=== PATIENT | female | born 1990 | race Caucasian/White ===

== ENCOUNTER → 2018-12-19 | Outpatient (CLI) | payer OTHER ==
--- NOTE | 2018-12-19 13:29 | RAD ---
LUMBAR SPINE 2-3V History: Low back pain for 2 years getting worse the last 3 months Comparison: None. Findings: 3 views of the lumbar spine are submitted. Lumbar vertebral body stature and AP alignment are maintained. Intervertebral disc spaces are adequate. No acute osseous abnormality is identified by radiographs. Impression: 1. No significant abnormality is identified by radiographs. Electronically signed by: Brady Pompa MD (12/19/2018 1:25 PM) [id number]
== END | disposition home or self-care (01) ==
LOC: RAD 10:55
PROVIDERS: ATTEND Family Medicine
DX: M54.5 Low back pain (principal)
CPT/HCPCS: 72100

== ENCOUNTER → 2019-02-16 | Outpatient (CLI) | payer SELFPAY ==
--- NOTE | 2019-02-16 16:29 | RAD ---
Views right hip 02/16/2019 3:59 PM Indication: Constant right hip pain x 1 month, no truama Comparison: Abdominal radiograph July 25, 2009 Findings: There is no acute fracture or dislocation. Articular surfaces are uninterrupted and smooth. Sclerotic focus in the right greater trochanter is stable likely a small bone island. Soft tissues are unremarkable. Impression: No evidence of acute osseous abnormality. Electronically signed by: Brady Capps MD (02/16/2019 4:26 PM) [id number]
== END | disposition home or self-care (01) ==
LOC: RAD 15:28
PROVIDERS: ATTEND Family Medicine
DX: M25.551 Pain in right hip (principal)
CPT/HCPCS: 73502

== ENCOUNTER 2019-08-10 13:58 | Emergency (ER) | payer OTHER ==
[~2019-08-10] VITALS: Ht 165.1 cm; Wt 107.0 kg
[2019-08-10 14:05] VITALS: BP 115/72
--- NOTE | 2019-08-10 14:22 | PHYS DOC ---
Past History Past Medical History: No Pertinent History Past Surgical History: Cholecystectomy Smoking: Cigarettes Alcohol Use: None Drug Use: None Adult General Chief Complaint Chief Complaint: ANKLE PROBLEM HPI HPI Patient is a 29-year-old female presents complaining of left ankle pain. She sustained an inversion mechanism ankle injury approximately 9:30 this morning while walking to work. She has been able to walk on it. She has taken no pain medicine. She reports that it feels numb in her toes. No previous history of ankle injury. Pain is moderate to severe. No radiation of the pain. Pain is sharp in nature. Increased pain with movement.[] Review of Systems Review of Systems Constitutional: Denies fever or chills [] Eyes: Denies change in visual acuity, redness, or eye pain [] HENT: Denies nasal congestion or sore throat [] Respiratory: Denies cough or shortness of breath [] Cardiovascular: No chest pain or palpitations[] GI: Denies abdominal pain, nausea, vomiting, bloody stools or diarrhea [] : Denies dysuria or hematuria [] Musculoskeletal: Denies back pain, see history of present illness[] Integument: Denies rash or skin lesions [] Neurologic: Denies headache, focal weakness or sensory changes [] Endocrine: Denies polyuria or polydipsia [] All other systems were reviewed and found to be within normal limits, except as documented in this note. Physical Exam Physical Exam Constitutional: Well developed, well nourished, no acute distress, non-toxic appearance. [] HENT: Normocephalic, atraumatic, bilateral external ears normal, oropharynx moist, no oral exudates, nose normal. [] Eyes: PERRLA, EOMI, conjunctiva normal, no discharge. [] Neck: Normal range of motion, no tenderness, supple, no stridor. [] Cardiovascular:Heart rate regular rhythm, no murmur [] Lungs & Thorax: Bilateral breath sounds clear to auscultation [] Abdomen: Not examined. [] Skin: Warm, dry, no erythema, no rash. [] Back: No tenderness, no CVA tenderness. [] Extremities: Left ankle has diffuse tenderness with tenderness over medial and lateral malleoli and the base of the fifth metatarsal. Full active range of motion. No rashes. No bruising. No significant swelling appreciated. Capillary refill is less than 2 seconds. No ankle laxity. A joint above and below were evaluated and were normal. The other 3 extremities show: No tenderness, no cyanosis, no clubbing, ROM intact, no edema. [] Neurologic: Alert and oriented X 3, normal motor function, normal sensory function, no focal deficits noted. [] Psychologic: Affect normal, judgement normal, mood normal. [] Current Patient Data Vital Signs Vital Signs Date Time Temp Pulse Resp B/P (MAP) Pulse Ox O2 Delivery O2 Flow Rate FiO2 08/10/19 14:05 98.2 88 18 99 Room Air EKG EKG [] Radiology/Procedures Radiology/Procedures Examination: ANKLE LEFT 3V, FOOT LEFT 3V History: Injury, pain Comparison/Correlation: None Findings: Three-view exam of the left ankle and 3 views of the left foot were obtained. Ankle joint mortise is unremarkable. Small calcaneal spur is present. No acute fracture or bony destruction. Bony density medial to the navicular bone probably represents accessory ossicle. Joint spaces are adequate. Impression: No acute process. No significant degenerative change.[] Course & Med Decision Making Course & Med Decision Making Pertinent Labs and Imaging studies reviewed. (See chart for details) ED course: Patient arrived, was placed in bed, and tolerated exam well. She was transported to and from radiology. She was given NSAIDs for pain. After the return of the imaging findings, these were discussed with the patient. A preformed ankle splint was placed on the patient. She was distally neurova scularly intact after the splint application. She was discharged in improved condition with all questions answered. Medical decision making: There is no evidence of a fracture or dislocation. No evidence of neurologic or vascular compromise. No evidence of significant tendinous or ligamentous injury.[] Dragon Disclaimer Dragon Disclaimer This electronic medical record was generated, in whole or in part, using a voice recognition dictation system. Departure Departure: Impression: Primary Impression: Left ankle sprain Disposition: HOME, SELF-CARE Condition: IMPROVED Referrals: KASEY MARTEL MD (PCP) Follow-up in 2 days Patient Instructions: Ankle Sprain, Acute, with Phase I Rehab-SportsMed Additional Instructions: Follow-up with your regular doctor in 2 days. Weight-bear as tolerated. Take the medication as prescribed. Return to the ER if worsening pain, weakness, or any other concerns. Scripts Meloxicam (MELOXICAM) 7.5 Mg Tablet 7.5 MG PO DAILY for PAIN, #20 TAB Prov: SHIRLEY WILLIAMSON DO 08/10/19 Problem Qualifiers Primary Impression: Left ankle sprain Encounter type: initial encounter Involved ligament of ankle: unspecified ligament Qualified Codes: S93.402A - Sprain of unspecified ligament of left ankle, initial encounter SHIRLEY WILLIAMSON DO Aug 10, 2019 14:22
[2019-08-10] MEDS ORDERED: IBUPROFEN 600 MG TABLET. PO ONE (14:30)
--- NOTE | 2019-08-10 14:31 | RAD ---
Examination: ANKLE LEFT 3V, FOOT LEFT 3V History: Injury, pain Comparison/Correlation: None Findings: Three-view exam of the left ankle and 3 views of the left foot were obtained. Ankle joint mortise is unremarkable. Small calcaneal spur is present. No acute fracture or bony destruction. Bony density medial to the navicular bone probably represents accessory ossicle. Joint spaces are adequate. Impression: No acute process. No significant degenerative change. Electronically signed by: Paul Chapa MD (08/10/2019 2:28 PM) [facility]
[2019-08-10] MEDS ORDERED: MELO7.5T29 PO (14:41)
== END 2019-08-10 14:46 | disposition home or self-care (01) ==
LOC: ER 13:58
DX: S93.402A Sprain of unspecified ligament of left ankle, initial encounter (principal); F17.210 Nicotine dependence, cigarettes, uncomplicated; X50.9XXA Other and unspecified overexertion or strenuous movements or postures, initial encounter; Y93.01 Activity, walking, marching and hiking; Y92.89 Other specified places as the place of occurrence of the external cause; Y99.8 Other external cause status
CPT/HCPCS: 73610; 73630; 99284

== ENCOUNTER 2021-07-08 02:45 | Emergency (ER) | payer OTHER ==
[~2021-07-08] VITALS: Ht 167.6 cm; Wt 117.1 kg
[~2021-07-08 02:45] MED LIST: MELO7.5T29 PO
[2021-07-08 02:50] VITALS: BP 117/66
[2021-07-08] MEDS ORDERED: CLIN300C9 PO (03:00)
--- NOTE | 2021-07-08 03:00 | PHYS DOC ---
Past History Past Medical History: No Pertinent History Past Surgical History: Cholecystectomy Smoking: Cigarettes Alcohol Use: None Drug Use: None Adult General HPI HPI Patient is an otherwise healthy 31-year-old female who presents with some tenderness and swelling around the distal tip of her left third digit that started couple days ago. States that it does hurt, 6 out of 10, dull and achy in nature. States she thought it might have some fluid in it and stabbed it with a needle but nothing came out except a little blood. Denies any recent traumas, travels, fevers, abdominal pain, nausea, vomiting. States he did not take anything for the pain. Review of Systems Review of Systems Review of systems otherwise unremarkable except noted in HPI Allergies Allergies Allergies Coded Allergies Type Severity Reaction Last Updated Verified No Known Drug Allergies 08/10/19 No Physical Exam Physical Exam Constitutional: Well developed, well nourished, no acute distress, non-toxic appearance. [] Skin: Warm, dry, no erythema, no rash. [] Back: No tenderness, no CVA tenderness. [] Extremities: Mild redness around the distal tip of the third left digit just proximal to the nail with some erythema and swelling but no fluctuance. Neurologic: Alert and oriented X 3, no focal deficits noted. [] Psychologic: Affect normal, judgement normal, mood normal. [] EKG EKG [] Radiology/Procedures Radiology/Procedures [] Heart Score C/O Chest Pain: No Risk Factors: Risk Factors: DM, Current or recent (<one month) smoker, HTN, HLP, family history of CAD, obesity. Risk Scores: Risk Factors: DM, Current or recent (<one month) smoker, HTN, HLP, family history of CAD, obesity. Course & Med Decision Making Course & Med Decision Making Patient is a 31-year-old female who presents with tenderness and redness around finger Vital signs not concerning. Physical exam noted above. Started on clindamycin for cellulitis. Given oral pain medicine. Discussed symptom management at home. Advised not to cut or stab anymore. Advised to follow-up with primary care physician on Saturday to set up a follow- up. Gave return precautions to the ED. Family grateful, verbalized understanding and agreed with plan of discharge. [] Dragon Disclaimer Dragon Disclaimer This electronic medical record was generated, in whole or in part, using a voice recognition dictation system. Departure Departure: Impression: Primary Impression: Cellulitis Disposition: HOME / SELF CARE / HOMELESS Condition: GOOD Referrals: KASEY MARTEL MD (PCP) Patient Instructions: Cellulitis, Paronychia Additional Instructions: Thank you for coming into the emergency department tonight and allowing us to take care of you. Please read all the attached information to go over things we discussed. Please take all your antibiotics as prescribed. Please begin a Tylenol, ibuprofen regimen as well as hot compress and/or ice as needed. Please follow-up Saturday with your primary care physician to set up a follow-up visit for a wound reevaluation. Please come back to the ED with new or concerning symptoms as discussed. Scripts Clindamycin Hcl (CLINDAMYCIN HCL) 300 Mg Capsule 1 CAP PO TID for cellulitis for 10 Days, #30 CAP Prov: TIGIST VILLA MD 07/08/21 TIGIST VILLA MD Jul 08, 2021 03:00
[2021-07-08] MEDS ORDERED: oxyCODONE/APAP 5/325 1 TAB TABLET PO ONE (03:30)
[2021-07-08] MEDS ORDERED: CLINDAMYCIN HCL 150 MG CAPSULE PO ONE (03:30)
== END 2021-07-08 03:18 | disposition home or self-care (01) ==
LOC: ER 02:45
DX: L03.012 Cellulitis of left finger (principal); F17.210 Nicotine dependence, cigarettes, uncomplicated; Z90.49 Acquired absence of other specified parts of digestive tract
CPT/HCPCS: 99283

== ENCOUNTER 2021-10-17 12:02 | Emergency (ER) | payer OTHER ==
[~2021-10-17] VITALS: Ht 167.6 cm; Wt 117.1 kg
[~2021-10-17 12:02] MED LIST changes: +CLIN-95 PO
[2021-10-17 12:40] VITALS: BP 119/74
[2021-10-17] MEDS ORDERED: KETOROLAC 60 MG/2 ML VIAL. IM ONE (13:45)
--- NOTE | 2021-10-17 13:53 | PHYS DOC ---
Past History Past Medical History: No Pertinent History Past Surgical History: Cholecystectomy Smoking: Cigarettes Alcohol Use: None Drug Use: None General Adult EDM: Chief Complaint: BACK PAIN OR INJURY HPI: HPI: Patient is a 31-year-old female that presents today with low back pain. Patient states pain started late last week and has progressively gotten worse over the last 2 days, patient denies trauma or injury at this time. Patient denies chest pain, shortness of breath, or fever or chills. Patient denies vaginal bleeding vaginal discharge and dysuria Review of Systems: Review of Systems: Constitutional: Denies fever or chills Eyes: Denies change in visual acuity HENT: Denies nasal congestion or sore throat Respiratory: Denies cough or shortness of breath Cardiovascular: Denies chest pain or edema GI: Denies abdominal pain, nausea, vomiting, bloody stools or diarrhea : Denies dysuria Musculoskeletal: Back pain Integument: Denies rash Neurologic: Denies headache, focal weakness or sensory changes Endocrine: Denies polyuria or polydipsia Lymphatic: Denies swollen glands Psychiatric: Denies depression or anxiety Current Medications: Current Meds: Current Medications Medications (Trade) Dose Ordered Sig/Ck Start Time Stop Time Status Last Admin Dose Admin Ketorolac Tromethamine (Toradol Im) 60 mg 1X ONCE 10/17/21 13:45 10/17/21 13:46 UNV Allergies: Allergies: Allergies Coded Allergies Type Severity Reaction Last Updated Verified No Known Drug Allergies 08/10/19 No Physical Exam: PE: Constitutional: Well developed, well nourished, no acute distress, non-toxic appearance. [] HENT: Normocephalic, atraumatic, bilateral external ears normal, oropharynx moist, no oral exudates, nose normal. [] Eyes: PERRLA, EOMI, conjunctiva normal, no discharge. [] Neck: Normal range of motion, no tenderness, supple, no stridor. [] Cardiovascular:Heart rate regular rhythm, no murmur [] Lungs & Thorax: Bilateral breath sounds clear to auscultation [] Abdomen: Bowel sounds normal, soft, no tenderness, no masses, no pulsatile masses. [] Skin: Warm, dry, no erythema, no rash. [] Back: Tenderness noted bilaterally to lumbar area no midline tenderness noted, no step-offs no crepitus noted. No radiculopathy noted vascular intact distal to the pain Extremities: No tenderness, no cyanosis, no clubbing, ROM intact, no edema. [] Neurologic: Alert and oriented X 3, normal motor function, normal sensory function, no focal deficits noted. [] Psychologic: Affect normal, judgement normal, mood normal. [] Current Patient Data: Labs: Laboratory Tests Test 10/17/21 12:57 10/17/21 13:00 Urine Collection Type Unknown Urine Color Yellow Urine Clarity Hazy Urine pH 6.0 Urine Specific [place] 1.025 Urine Protein Neg Urine Glucose (UA) Neg mg/dL Urine Ketones (Stick) Neg mg/dL Urine Blood Neg Urine Nitrite Neg Urine Bilirubin Neg Urine Urobilinogen Dipstick 0.2 mg/dL Urine Leukocyte Esterase Trace Urine RBC 1-2 /HPF Urine WBC 5-10 /HPF Urine Squamous Epithelial Cells Many /LPF Urine Bacteria 0 /HPF Bedside Urine HCG, Qualitative hcg negative Current Medications Medications (Trade) Dose Ordered Sig/Ck Route PRN Reason Start Time Stop Time Status Last Admin Dose Admin Ketorolac Tromethamine (Toradol Im) 60 mg 1X ONCE IM 10/17/21 13:45 10/17/21 13:50 DC 10/17/21 13:45 Laboratory Tests Test 10/17/21 13:00 POC Urine HCG, Qualitative hcg negative (Negative) Vital Signs: Vital Signs Date Time Temp Pulse Resp B/P (MAP) Pulse Ox O2 Delivery O2 Flow Rate FiO2 10/17/21 12:40 98.2 79 16 119/74 (89) 98 Room Air EKG: EKG: [] Radiology/Procedures: Radiology/Procedures: [] Heart Score: C/O Chest Pain: N/A Risk Factors: Risk Factors: DM, Current or recent (<one month) smoker, HTN, HLP, family history of CAD, obesity. Risk Scores: Score 0 - 3: 2.5% MACE over next 6 weeks - Discharge Home Score 4 - 6: 20.3% MACE over next 6 weeks - Admit for Clinical Observation Score 7 - 10: 72.7% MACE over next 6 weeks - Early Invasive Strategies Course & Med Decision Making: Course & Med Decision Making Pertinent Labs and Imaging studies reviewed. (See chart for details) Reviewed urine results with patient, will treat for UTI, as well as musculoskeletal pain as well for her back, will have her follow-up with her primary care physician or one of the physicians listed on the resource sheet for further management of her low back pain Kedar Disclaimer: Kedar Disclaimer: This electronic medical record was generated, in whole or in part, using a voice recognition dictation system. Departure Departure: Impression: Primary Impression: UTI (urinary tract infection) Qualified Codes: N30.00 - Acute cystitis without hematuria Additional Impression: Back pain Qualified Codes: M54.50 - Low back pain, unspecified Disposition: 01 HOME / SELF CARE / HOMELESS Condition: STABLE Referrals: KASEY MARTEL MD (PCP) Patient Instructions: Back Pain in , Urinary Tract Infection Additional Instructions: Macrobid 100 mg twice daily for 7 full days for the urinary tract infection Diclofenac and flexeril as needed for back pain, use with caution may cause drowiness Ice 20 minutes on 3-4 times daily as needed for back pain Increase by mouth fluids avoid caffeine and alcohol that may be irritating to the bladder Follow-up with your primary care physician in the next 5 to 7 days if no better Scripts Nitrofurantoin Monohyd/M-Cryst (MACROBID 100 MG CAPSULE) 100 Mg Capsule 1 CAP PO BID for uti for 7 Days, #14 CAP 0 Refills Prov: HAROON HUGHES GRINDER GEAR 10/17/21 Cyclobenzaprine Hcl (CYCLOBENZAPRINE HCL) 10 Mg Tablet 1 TAB PO TID PRN PRN for PAIN, #20 TAB Prov: HAROON HUGHES GRINDER GEAR 10/17/21 Diclofenac Sodium (DICLOFENAC SODIUM) 50 Mg Tablet. 1 TAB PO PRN BID PRN for PAIN, #60 TAB Prov: HAROON HUGHES GRINDER GEAR 10/17/21 HAROON HUGHES GRINDER GEAR Oct 17, 2021 13:53
[2021-10-17 14:14] LABS: BACTERIA,URINE 0 /HPF (0-FEW); BILIRUBIN,URINE NEG (NEG); CLARITY,URINE HAZY; COLOR,URINE YELLOW; GLUCOSE,URINE NEG (NEG); NITRITE,URINE NEG (NEG); SQUAMOUS EPITHELIAL CELL,UR MANY /LPF; UROBILINOGEN,URINE 0.2 mg/dL (0.2 mg/dL)
[2021-10-17] MEDS ORDERED: DICL50TA4 PO (14:26)
[2021-10-17] MEDS ORDERED: NITR100C62 PO (14:26)
[2021-10-17] MEDS ORDERED: CYCL10TA19 PO (14:26)
== END 2021-10-17 14:36 | disposition home or self-care (01) ==
LOC: ER 12:02
DX: N30.00 Acute cystitis without hematuria (principal); M54.59 Other low back pain; F17.210 Nicotine dependence, cigarettes, uncomplicated; Z90.49 Acquired absence of other specified parts of digestive tract
CPT/HCPCS: 81001; 81025; 87086; 96372; 99283; J1885